=== PATIENT | female | born 1970 | race Two or more races ===

== ENCOUNTER 2019-06-15 00:47 | Emergency (ER) | payer SELFPAY ==
[~2019-06-15] VITALS: Ht 157.5 cm; Wt 90.3 kg
[2019-06-15] MEDS ORDERED: MORPHINE SULFATE INJ 4 MG/ML DISP.SYRIN ONE (01:27)
[2019-06-15] MEDS ORDERED: ONDANSETRON HCL/PF 4 MG/2 ML VIAL ONE (01:27)
[2019-06-15] MEDS ORDERED: ONDANSETRON HCL/PF 4 MG/2 ML VIAL IVP ONE (01:30)
[2019-06-15] MEDS ORDERED: MORPHINE SULFATE INJ 2 MG/ML DISP.SYRIN IV ONE (01:30)
[2019-06-15] MEDS ORDERED: IV NS 0.9% 500 ML BAG IV ONE ×2 (01:30→02:30)
--- NOTE | 2019-06-15 01:31 | NUR ---
PT BIBSELF C/O UPPER ABDOMINAL PAIN X1 DAY. PT ALSO C/O VOMITTING. DENIES DIARRHEA, DYSURIA, FEVER. PT AAOX4, APPEARS UNCOMFORTABLE. RESPIRATIONS EVEN AND UNLABORED. SKIN WARM AND INTACT. ABLE TO AMBULATE WITH STEADY GAIT. NO ACUTE DISTRESS NOTED AT THIS TIME. WILL CONTINUE TO MONITOR
--- NOTE | 2019-06-15 01:34 | NUR ---
PT AMBULATORY TO RESTROOM WITH STEADY GAIT. URINE COLLECTED AND SENT TO LAB
--- NOTE | 2019-06-15 01:41 | NUR ---
IV INITIATED L AC 18G. LABS DRAWN FROM SITE. SCALE SHOOTER AT BEDSIDE FOR COLLECTION. IV INTACT AND PATENT, PLACED ON SALINE LOCK
[2019-06-15 01:45] LABS: BASOPHILS # (AUTO) 0.1 /CMM (0.0-0.2); BASOPHILS % (AUTO) 0.7 % (0.0-2.0); EOSINOPHILS % (AUTO) 0.1 % (0.0-6.0); HEMATOCRIT 26 % (33-45); HEMOGLOBIN 7.7 g/dL (11.5-14.8); LYMPHOCYTES # (AUTO) 0.8 /CMM (0.8-4.8); LYMPHOCYTES % (AUTO) 7.8 % (20.0-44.0); MEAN CORPUSCULAR HGB CONC 30 g/dl (31.0-36.0); MEAN CORPUSCULAR VOLUME 60 fL (82-100); MONOCYTES # (AUTO) 0.5 /CMM (0.1-1.30); MONOCYTES % (AUTO) 4.6 % (2.0-12.0); NEUTROPHILS # (AUTO) 8.8 /CMM (1.8-8.9); NEUTROPHILS % (AUTO) 86.8 % (43.0-81.0); PLATELET COUNT (AUTO) 384 /CMM (150-450); RED BLOOD CELL COUNT(AUTO) 4.31 MIL/uL (4.0-5.2); WHITE BLOOD COUNT (AUTO) 10.2 K/uL (4.3-11.0)
--- NOTE | 2019-06-15 01:51 | NUR ---
PT REFUSING MORPHINE AT THIS TIME, ER AWARE
[2019-06-15 01:52] LABS: CALCIUM, SERUM 8.7 mg/dL (8.5-10.1); CREATININE 0.9 mg/dL (0.6-1.3); POTASSIUM 3.6 mmol/L (3.5-5.1)
[2019-06-15 01:58] LABS: ALBUMIN 3.3 g/dL (3.4-5.0); BILIRUBIN,DIRECT 0.1 mg/dL (0.0-0.2); BILIRUBIN,TOTAL 0.6 mg/dL (0.2-1.0); TOTAL PROTEIN, SERUM 7.5 g/dL (6.4-8.2)
[2019-06-15 03:12] VITALS: BP 118/73
--- NOTE | 2019-06-15 03:12 | NUR ---
Patient discharged to home in stable condition. Written and verbal after care instructions given. Patient verbalizes understanding of instruction.IV removed. Catheter intact and site benign. Pressure and 4x4 applied to site. No bleeding noted.Pt ambulatory with a steady gait
== END 2019-06-15 03:12 | disposition home or self-care (01) ==
LOC: ER 00:47
DX: K52.9 Noninfective gastroenteritis and colitis, unspecified (principal)
CPT/HCPCS: 36415; 80048; 80076; 83690; 84703; 85025; 96374; 99283; J2405; J7040 ×2; J2270